=== PATIENT | male | born 1950 | race Caucasian/White ===

== ENCOUNTER → 2023-07-13 08:59 | Outpatient (REF) | payer MEDICARE, MEDICAID, SELFPAY | LOC: MRI 08:59 | PROVIDERS: ATTENDING PHYSICIAN Specialist; FAMILY PHYSICIAN Internal Medicine | DX: R26.81 Unsteadiness on feet (principal) | CPT/HCPCS: 70551 ==

== ENCOUNTER → 2024-01-10 06:25 | Day surgery (SDC) | payer MEDICARE, MEDICAID, SELFPAY ==
[2024-01-10 14:09] LABS: Glucose - Point of Care 113 mg/dl (70-99)
== END ==
LOC: GI 06:25
PROVIDERS: ATTENDING PHYSICIAN Internal Medicine Gastroenterology
DX: Z12.11 Encounter for screening for malignant neoplasm of colon (principal); D12.2 Benign neoplasm of ascending colon; D12.3 Benign neoplasm of transverse colon; K63.5 Polyp of colon; K64.0 First degree hemorrhoids; Z86.010 Personal history of colon polyps
CPT/HCPCS: 45380; 88305; 82962

== ENCOUNTER → 2025-04-06 10:38 | Outpatient (REF) | payer MEDICARE, MEDICAID, SELFPAY | LOC: MRI 3T 10:38 | PROVIDERS: ATTENDING PHYSICIAN Specialist; FAMILY PHYSICIAN Internal Medicine | DX: G23.8 Other specified degenerative diseases of basal ganglia (principal); R26.81 Unsteadiness on feet; I63.9 Cerebral infarction, unspecified | CPT/HCPCS: 70551 ==